=== PATIENT | male | born 1950 | race Caucasian/White ===

== ENCOUNTER 2016-05-19 09:01 | Day surgery (SDC) | payer OTHER ==
[2016-05-17 11:00] LABS: HEMATOCRIT 45.2 % (40.0-51.0); HEMOGLOBIN 15.4 g/dL (13.6-17.8)
[2016-05-17 11:12] LABS: CALCIUM, SERUM 8.9 MG/DL (8.5-10.4); CHLORIDE, SERUM 104 MMOL/L (96-112); CO2 (CARBON DIOXIDE) 29 MMOL/L (24-34); GFR AFRICAN AMERICAN 81 ML/MIN (>=60); GFR NON AFRICAN AMERICAN 70 ML/MIN (>=60); GLUCOSE, SERUM 110 MG/DL (60-99); POTASSIUM, SERUM 4.1 MMOL/L (3.5-5.3); SODIUM, SERUM 139 MMOL/L (135-148)
[2016-05-17 11:13] LABS: BUN (BLOOD UREA NITROGEN) 17 MG/DL (6-23)
--- NOTE | ~2016-05-19 | OP ---
Record Of Operation [facility] [address] [place]. [address] NAME: JOLYNN BELL : 50 STATUS : [facility]#: [id number] AGE: 65 ADM/REG DATE : 05/19/16 MR#: [id number] REPORT SERV DATE: 05/20/16 DICTATED BY: Dorothy BAHENA DATE: 05/19/16 REPORT STATUS : Draft TRANSCRIBED BY: ELSA DATE: 05/19/16 DATE OF PROCEDURE: 05/19/2016 PREOPERATIVE DIAGNOSES: 1. Malignant melanoma of the right lateral forehead-scalp. 2. Defect of the right lateral forehead-scalp secondary to excision of malignant melanoma. 3. Lesion of the left lower nasal sidewall near the alar crease, uncertain behavior rule out atypia. POSTOPERATIVE DIAGNOSES: 1. Malignant melanoma of the right lateral forehead-scalp. 2. Defect of the right lateral forehead-scalp secondary to excision of malignant melanoma. 3. Lesion of the left lower nasal sidewall near the alar crease, uncertain behavior rule out atypia, melanocytic lesion by frozen section (no basal cell carcinoma or squamous cell carcinoma, permanent path pending). PROCEDURE: 1. Re-excision of right lateral forehead-scalp margins for permanent section. 2. Surgical excisional preparation of right lateral forehead-scalp defect. 3. Reconstruction of right lateral forehead-scalp defect with rotation flap closure. 4. Shave excisional biopsy of lesion of the left lower nasal sidewall near alar crease with frozen section. FINDINGS: A 3.2 cm tall x 3.1 cm wide defect created in the office on 05/15/2016, was smaller today due to the cerclage suture placed Sunday; additional circumferential excision of full-thickness skin was accomplished, with 3 mm margin in the 12 to 6 o'clock area and the remaining approximately 1.5 mm. INDICATIONS: This 65-year-old gentleman was referred because of a biopsy proven malignant melanoma, invasive to 0.3 mm with some vertical growth, but with a 0 mitotic rate, no ulceration nor lymphovascular invasion. Margins were involved. After discussion, he understood in the office that we need to excise this and wait for permanent pathology report before reconstructing. We had to make sure that we had complete margins. He therefore presented to the office on 05/15/2016 where under local anesthesia, excision of the melanoma with 1 cm visual margins around this was accomplished in the right lateral forehead and the adjacent scalp, resulting in a 3.1 cm x 3.2 cm defect. The wound was closed partially with a cerclage suture of 2-0 Vicryl and a sterile dressing sutured in place. We obtained the final pathology report yesterday, and it showed that all the margins were clear. There was residual malignant melanoma in situ, and all the margins were good except that the margins were close at the 1 to 2 o'clock area (2.5 mm from the margin) and at the 10 o'clock to 11 o'clock area where it was 5 mm from the margin. All other margins were greater than 5 mm. Under NCCN guidelines, this is a good margins. There was no residual invasive melanoma seen in my excision (meaning that all the invasive melanoma was removed with the initial biopsy by his microsoft windows engineer). He now presents for excision of additional margins for permanent section and reconstruction. Record Of Operation [address] [address] NAME: JOLYNN BELL : 50 STATUS : [facility] PAT#: [id number] AGE: 65 ADM/REG DATE : 05/19/16 MR#: [id number] REPORT SERV DATE: 05/20/16 DICTATED BY: Dorothy BAHENA DATE: 05/19/16 REPORT STATUS : Draft TRANSCRIBED BY: ELSA DATE: 05/19/16 He also has a lesion of the left lower nasal sidewall that measures 6 mm and is raised. He states he has had it for long time but it is suspicious for basal cell. We are now planing a shave biopsy and frozen section to rule out basal cell or squamous cell. We may need to excise this area. He understands. The pros and cons, alternatives, benefits, risks, limitations, and complications were discussed at length, including infection, reoperation for recurrence, metastasis, suture reaction, scarring, distortion of facial features, nerve injury. We also discussed sentinel lymph node biopsy but by NCCN guidelines, the sentinel lymph node biopsy is not advised. He understands and wishes to proceed. Proper consent obtained. No guarantees expressed. DESCRIPTION OF PROCEDURE: He was taken into the operating room for this procedure. He was taken in the operating room and given general oral endotracheal anesthesia in the supine position. The dressing on his forehead was removed, revealing the sutured in dressing. His entire face, right ear and periauricular scalp and neck were prepped with Hibiclens and saline followed by isopropyl alcohol. Sterile drapes were applied. Because the forehead bled considerably in the office, I left the sutured-in dressing until this time where the sutured-in dressing was carefully removed to not contaminate any of our drapes. At this point, the cerclage suture was removed as well, and additional prep of this area was accomplished with Hibiclens and saline. The wound was opened up, and circumferential margins were taken in a ring fashion. This was done with a 15 blade. Before the circumferential ring of tissue was removed, a long suture was placed at the 12 o'clock position and a short suture was placed at the 6 o'clock position. The lesion of the left side of the nose was shaved, excised, and gauze placed on it for hemostasis. The pathologist was brought into the room to perform frozen sections. The frozen sections returned showing this to be a melanocytic lesion, therefore permanent pathology will be pending for final diagnosis, but there was no squamous cell or basal cell carcinoma. Pressure had been placed on the right forehead and the vessels were cross clamped, that were bleeding (branches of the superficial temporal artery). They were cross clamped, and suture ligatured with 4-0 Vicryl. Next, closure could not be obtained primarily. This defect was over 3 cm as stated above and wide flap development in the scalp overlying the deep temporal fascia was accomplished with the guarded tip cautery for hemostasis and flap elevation. Elevation was also done in the forehead in the subgaleal layer and up into the frontal scalp. In the horizontal direction, the elevation was done in the subgaleal fashion in the mid-forehead at the level of the supraorbital nerve but well above the supraorbital nerve and above the course of the frontal branch of the facial nerve. After flap development was accomplished, the flaps were rotated. They were still hard to get this closed, and an inferior flap was developed in the lower temporal scalp but well away from the branch of the frontal portion of the facial nerve. At this point, the flaps were rotated upon themselves and secured with 2-0 Vicryl Record Of Operation [facility] [address] [place]. [address] NAME: JOLYNN BELL : 50 STATUS : [facility] PAT#: [id number] AGE: 65 ADM/REG DATE : 05/19/16 MR#: [id number] REPORT SERV DATE: 05/20/16 DICTATED BY: Dorothy BAHENA DATE: 05/19/16 REPORT STATUS : Draft TRANSCRIBED BY: ELSA DATE: 05/19/16 deep. At this point, there were acquired deformities in the forehead and the scalp, and these were treated as a dog ear allowing the final incision to be in the same direction as the wrinkle line of his forehead. These dog ears were closed deep with 4-0 and 5-0 Vicryl on the forehead and 4-0 Vicryl deep in the temporal scalp. The skin edges were coapted with 5-0 interrupted Prolene in the scalp and a running locking 6-0 Prolene on the forehead skin. The wounds were cleansed with hydrogen peroxide and dried. Mastisol and paper tape were applied in ab antitension fashion on the forehead. The left nasal lesion was treated with Mastisol and paper tape after the base was lightly cauterized. The scalp was treated with Telfa and white paper tape. He was awakened and extubated and taken to the recovery room in good condition having tolerated procedure well. Estimated blood loss was 25 mL. In the recovery room, an additional Kerlix pressure wrap was placed circumferentially around the forehead and scalp and secured with white paper tape. Home-going instructions included a prescription for generic Zofran 8 mg ODT #6 one dissolved orally q.6 hours p.r.n. nausea or vomiting; he has prescriptions at home for hydrocodone and for cephalexin which he has been taking. He will remove the white dressing only tomorrow or leave it for another day if it is bleeding (I discussed this with his ). He is to keep the mccoy paper tape on his face and recheck in the office in 6 days. He is to sleep elevated in a lazy boy chair and avoid laughing, talking, smiling, chewing for the next seven days. JORGE/ELSA Dorothy Bahena M.D. / [id number] CC: Darvin Ambriz Jr., D.O.
[~2016-05-19 09:01] MED LIST: ASAB PO; BYSTOLIC5 MG PO; DIOVAN HC1 PO; FLOMAX4 PO; LIPITOR20 PO; MULTIPLE VIT PO; NORV5 PO; WELCHOL 625 MG625 MG PO
== END 2016-05-19 17:42 | disposition home or self-care (01) ==
LOC: SDC 09:01
PROVIDERS: Specialist
PROC: 0JR107Z Replacement of Face Subcutaneous Tissue and Fascia with Autologous Tissue Substitute, Open Approach (ICD-10-PCS; principal; 2016-05-19 11:00)
PROC: 0JB10ZZ Excision of Face Subcutaneous Tissue and Fascia, Open Approach (ICD-10-PCS; 2016-05-19 11:00)
DX: C43.39 Malignant melanoma of other parts of face (principal); D22.39 Melanocytic nevi of other parts of face; E78.00 Pure hypercholesterolemia, unspecified; I10 Essential (primary) hypertension; Z98.890 Other specified postprocedural states; Z98.41 Cataract extraction status, right eye; Z98.42 Cataract extraction status, left eye; Z96.1 Presence of intraocular lens; Z79.899 Other long term (current) drug therapy; Z79.82 Long term (current) use of aspirin
CPT/HCPCS: 80048; 85014; 85018; 88305; 88331; 93005; A9270-GY; J0690; J2250; J2370; J2405; J2710; J3010